=== PATIENT | male | born 1985 | race African-American/Black ===

== ENCOUNTER 2019-08-20 22:04 | Emergency (ER) | payer OTHER ==
[~2019-08-20] VITALS: Ht 153.4 cm; Wt 72.7 kg
[2019-08-20 22:08] VITALS: Ht 153.4 cm; Wt 72.7 kg
[2019-08-20] MEDS ORDERED: ULTRAM50 MG PO (22:53)
[2019-08-20 22:59] VITALS: BP 146/84
== END 2019-08-20 22:59 | disposition home or self-care (01) ==
LOC: D.ER 22:04
DX: S01.81XA Laceration without foreign body of other part of head, initial encounter (principal); Y29.XXXA Contact with blunt object, undetermined intent, initial encounter